=== PATIENT | female | born 1965 | race Caucasian/White ===

== ENCOUNTER 2017-01-03 15:23 | Observation (INO) | payer OTHER ==
[~2017-01-03] VITALS: Ht 167.6 cm; Wt 111.0 kg
[~2017-01-03 15:23] MED LIST: ALBUTEROL SULF8.5 GM IH; ARAVA10 MG PO; ATORVASTATIN CA10 MG PO; Arava PO; B-COMPLEX-VITA1 EACH PO; CLARITIN10 MG PO; Cardizem CD,Cartia X PO; Claritin,Alavart PO; DILTIAZEM 24HR360 M1 PO; ENBREL50 MG/1 ML SQ; Ecotrin PO; FLEXERIL10 MG PO; FLOVENT 11120 INHALA IH; FOLIC ACID1 MG PO; FUROSEMIDE40 MG PO; Folvite PO; GLUCOPHAGE500 MG PO; GLUCOSAMINE1000 MG PO; HYDROXYCHLOROQ200 MG PO; LOSARTAN-HCTZ1 EAC2 PO; MELATONIN1 MG PO; METFORMIN HCL1000 M1 PO; MULTIVITAMIN1 EAC2 PO; NAPROXEN500 MG PO; NASONEX17 GM BOTH NARES; PANTOPRAZOLE SO40 MG PO; PERCOCET 5-3251 EACH PO; POTASSIUM CHLO20 ME1 PO; PROTONIX40 MG PO; Plaquenil PO; Protonix PO; RANITIDINE HCL300 MG PO; SYMBICORT60 INHALAT IH; VALIUM5 MG PO; VALSARTAN320 MG PO; ZIAC 2.5/6.251 TAB PO
[2017-01-03 15:50] LABS: HEMATOCRIT 38.9 % (36.0-46.0); MCH 25.5 PG (29.0-34.0); MCHC 32.9 G/DL (30.0-36.0); MCV 77.5 FL (83-99); MEAN PLAT.VOLUME 8.8 uM^3 (9.5-12.4); PLATELET COUNT 354 K/uL (156-360); RBC DIS.WIDTH-CV 14.2 % (11.8-14.6); RBC DIS.WIDTH-SD 39.8 % (39-53); RED BLOOD COUNT 5.02 M/uL (3.80-5.20); WHITE BLOOD COUNT 11.6 K/uL (4.1-10.2)
[2017-01-03 16:13] LABS: TROP-I INTERPRETATION NEGATIVE; TROPONIN-I < 0.01 ng/mL (0.0-0.30)
[2017-01-03 16:41] LABS: CHLORIDE 108 mEq/L (99-109); POTASSIUM 3.8 mEq/L (3.7-5.4); SODIUM 141 mEq/L (136-147)
[2017-01-03 16:42] LABS: GLUCOSE 133 mg/dL (70-99)
[2017-01-03 16:44] LABS: ANION GAP 14 MEQ/L (2-14)
[2017-01-03 16:46] LABS: GFR ESTIMATE (CALCULATED) > 59 mL/min/
[2017-01-03 16:47] LABS: UREA NITROGEN (BUN) 16 mg/dL (9-23)
[2017-01-03] MEDS ORDERED: GLUCOPHAGE XR,500 MG PO (17:27)
[2017-01-03] MEDS ORDERED: GLUCOTROL XL5 MG PO (17:30)
[2017-01-03] MEDS ORDERED: SINGULAIR10 MG PO (17:31)
[2017-01-03] MEDS ORDERED: GLUCOTROL XL10 MG PO (17:31)
[2017-01-03] MEDS ORDERED: ARTIFICIAL TEAR1510 BOTH EYES (17:32)
[2017-01-03] MEDS ORDERED: MOTRIN800 MG PO (17:33)
[2017-01-03] MEDS ORDERED: DUEXIS 800-26.1 EACH PO (17:33)
[2017-01-03] MEDS ORDERED: ASPERCREME 1035.4 GM TP (17:34)
[2017-01-03] MEDS ORDERED: TIGER BALM MUSC57 GM TP (17:34)
[2017-01-03 19:36] VITALS: BP 142/83
[2017-01-03 22:50] LABS: TROP-I INTERPRETATION NEGATIVE; TROPONIN-I < 0.01 ng/mL (0.0-0.30)
[2017-01-03 23:00] VITALS: BP 130/61
[2017-01-04 03:56] LABS: TROP-I INTERPRETATION NEGATIVE; TROPONIN-I < 0.01 ng/mL (0.0-0.30)
[2017-01-04 04:12] VITALS: BP 122/68
[2017-01-04 08:19] VITALS: BP 129/65
[2017-01-04 08:22] LABS: POINT-OF-CARE METER ID UU14174216
[2017-01-04 09:05] LABS: EOSINOPHIL (%) 3.3 % (0-5); EOSINOPHIL COUNT 0.3 K/uL (0-0.3); IMMATURE GRANULOCYTE (%) 0.4 % (0.0-0.7); INSTRUMENT ABS NEUTROPHIL CT 5.6 K/uL; LYMPHOCYTE COUNT 1.9 K/uL (1.0-2.8); MCH 24.9 PG (29.0-34.0); MCHC 31.7 G/DL (30.0-36.0); MCV 78.5 FL (83-99); MEAN PLAT.VOLUME 8.8 uM^3 (9.5-12.4); MONOCYTE COUNT 0.5 K/uL (0-0.8); NEUTROPHIL (%) 67.4 % (45-76); NEUTROPHIL COUNT 5.6 K/uL (1.8-6.4); PLATELET COUNT 295 K/uL (156-360); RBC DIS.WIDTH-CV 14.4 % (11.8-14.6); RBC DIS.WIDTH-SD 41.4 % (39-53); RED BLOOD COUNT 4.46 M/uL (3.80-5.20); WHITE BLOOD COUNT 8.2 K/uL (4.1-10.2)
[2017-01-04 09:25] LABS: ANION GAP 7 MEQ/L (2-14); CHLORIDE 107 MEQ/L (99-109); POTASSIUM 3.9 MEQ/L (3.7-5.4); SAMPLE HEMOLYSIS CHECK 0; SAMPLE ICTERIC CHECK 0; SAMPLE LIPEMIA CHECK 0; SODIUM 138 MEQ/L (136-147)
[2017-01-04 09:31] LABS: GFR ESTIMATE (CALCULATED) > 59 mL/min/; UREA NITROGEN (BUN) 18 mg/dL (9-23)
[2017-01-04 09:38] LABS: GLUCOSE 217 mg/dL (70-99)
[2017-01-04 11:46] VITALS: BP 129/66
[2017-01-04 16:52] LABS: POINT-OF-CARE METER ID UU14174216
== END 2017-01-04 16:33 | disposition home or self-care (01) ==
LOC: EME 15:23 → EDOF 16:46 → 4EAST 16:46
PROVIDERS: Emergency Medicine; Internal Medicine; Student in an Organized Health Care Education/Training Program
DX: R07.89 Other chest pain (principal); I48.0 Paroxysmal atrial fibrillation; I10 Essential (primary) hypertension; E11.9 Type 2 diabetes mellitus without complications; J45.909 Unspecified asthma, uncomplicated; E66.9 Obesity, unspecified; Z68.39 Body mass index [BMI] 39.0-39.9, adult
CPT/HCPCS: 71010; 80048; 82948; 83735; 83880; 84443; 84484; 85025; 85027; 93005; 93306; 94640; 99202; 99281; 99285; G0378; J1650; J1815; J7050

== ENCOUNTER 2017-08-26 16:40 | Emergency (ER) | payer OTHER ==
[~2017-08-26] VITALS: Ht 167.6 cm; Wt 104.5 kg
[~2017-08-26 16:40] MED LIST changes: +ARTIFICIAL TEAR1510 BOTH EYES; +ASPERCREME 1035.4 GM TP; +DUEXIS 800-26.1 EACH PO; +GLUCOPHAGE XR,500 MG PO; +GLUCOTROL XL10 MG PO; +GLUCOTROL XL5 MG PO; +MOTRIN800 MG PO; +SINGULAIR10 MG PO; +TIGER BALM MUSC57 GM TP
[2017-08-26 16:44] VITALS: BP 153/80
[2017-08-27 11:07] LABS: ANTI-HEPATITIS B CORE (TOTAL) Nonreactive
== END 2017-08-26 18:32 | disposition home or self-care (01) ==
LOC: EME 16:40
PROVIDERS: Nurse Practitioner Family
DX: S61.231A Puncture wound without foreign body of left index finger without damage to nail, initial encounter (principal); W46.0XXA Contact with hypodermic needle, initial encounter; Y99.0 Civilian activity done for income or pay; Z91.040 Latex allergy status; Z88.8 Allergy status to other drugs, medicaments and biological substances
CPT/HCPCS: 80053; 82248; 84100; 84702; 86703; 86704; 86706; 86803; 87340; 99281; 99282

== ENCOUNTER 2017-10-10 05:07 | Emergency (ER) | payer OTHER ==
[~2017-10-10] VITALS: Ht 167.6 cm; Wt 113.8 kg
[2017-10-10 05:31] LABS: HEMATOCRIT 35.6 % (36.0-46.0); HEMOGLOBIN 11.7 G/DL (11.9-15.5); MCH 25.7 PG (29.0-34.0); MCHC 32.9 G/DL (30.0-36.0); MCV 78.1 FL (83-99); PLATELET COUNT 314 K/uL (156-360); RBC DIS.WIDTH-CV 13.7 % (11.8-14.6); RBC DIS.WIDTH-SD 38.8 % (39-53); RED BLOOD COUNT 4.56 M/uL (3.80-5.20); WHITE BLOOD COUNT 10.6 K/uL (4.1-10.2)
[2017-10-10 05:32] LABS: CHLORIDE 109 mEq/L (99-109); SODIUM 140 mEq/L (136-147)
[2017-10-10 05:34] LABS: GLUCOSE 275 mg/dL (70-99)
[2017-10-10 05:38] LABS: CREATININE 0.8 mg/dL (0.6-1.3); GFR ESTIMATE (CALCULATED) > 59 mL/min/
[2017-10-10 05:39] LABS: UREA NITROGEN (BUN) 18 mg/dL (9-23)
[2017-10-10 05:46] LABS: TROP-I INTERPRETATION NEGATIVE; TROPONIN-I < 0.01 ng/mL (0.0-0.30)
[2017-10-10 06:53] VITALS: BP 119/65
== END 2017-10-10 06:55 | disposition home or self-care (01) ==
LOC: EME 05:07
DX: I48.91 Unspecified atrial fibrillation (principal); R07.9 Chest pain, unspecified; J45.909 Unspecified asthma, uncomplicated; E11.9 Type 2 diabetes mellitus without complications; I10 Essential (primary) hypertension; M02.30 Reiter's disease, unspecified site; Z79.84 Long term (current) use of oral hypoglycemic drugs; Z91.040 Latex allergy status; Z88.8 Allergy status to other drugs, medicaments and biological substances
CPT/HCPCS: 71046; 80048; 84484; 85027; 93005; 99281; 99284; J1742

== ENCOUNTER 2018-02-14 02:14 | Emergency (ER) | payer OTHER ==
[~2018-02-14] VITALS: Ht 167.6 cm; Wt 107.5 kg
[2018-02-14 03:28] VITALS: BP 162/94
== END 2018-02-14 03:29 | disposition home or self-care (01) ==
LOC: EME 02:14
PROC: 09C4XZZ Extirpation of Matter from Left External Auditory Canal, External Approach (ICD-10-PCS; principal; 2018-02-14)
DX: T16.2XXA Foreign body in left ear, initial encounter (principal); H65.02 Acute serous otitis media, left ear; H69.82 Other specified disorders of Eustachian tube, left ear; X58.XXXA Exposure to other specified factors, initial encounter
CPT/HCPCS: 99281; 99284